=== PATIENT | male | born 1970 ===

== ENCOUNTER → 2023-04-15 06:32 | Day surgery (SDC) | payer OTHER, SELFPAY ==
[2023-04-15 09:43] LABS: Glucose - Point of Care 98 mg/dl (70-99)
== END ==
LOC: GI 06:32
PROVIDERS: ATTENDING PHYSICIAN Specialist
DX: Z12.11 Encounter for screening for malignant neoplasm of colon (principal); D12.3 Benign neoplasm of transverse colon; K57.30 Diverticulosis of large intestine without perforation or abscess without bleeding; Z86.010 Personal history of colon polyps
CPT/HCPCS: 45385; 88305; 82962